=== PATIENT | male | born 1965 | race African-American/Black ===

== ENCOUNTER 2024-11-02 20:24 | Emergency (ER) | payer SELFPAY ==
[2024-11-02] MEDS ORDERED: Dexamethasone 10 MG/ML VIAL ONE (23:14)
== END 2024-11-03 00:44 | disposition home or self-care (01) ==
LOC: CSHERS 20:24
DX: J45.901 Unspecified asthma with (acute) exacerbation (principal); I10 Essential (primary) hypertension; F17.210 Nicotine dependence, cigarettes, uncomplicated
CPT/HCPCS: 71045; 93005; 96372; J1100; J7620